=== PATIENT | female | born 1960 | race Caucasian/White ===

== ENCOUNTER 2016-08-30 09:31 | Emergency (ER) | payer MEDICAID, OTHER, SELFPAY ==
[~2016-08-30] VITALS: Ht 154.9 cm; Wt 74.8 kg
[2016-08-30] MEDS ORDERED: LEVO88TA3 PO (10:07)
--- NOTE | 2016-08-30 11:30 | REP ---
Productive cough. Comparison: None. FINDINGS: The superior mediastinal structures are midline. The cardiac silhouette is unremarkable in size, shape, and position. The diaphragmatic surfaces of the lungs are regular, and the costophrenic angles are clear. The pulmonary montemayor are clear. The imaged osseous structures are intact. IMPRESSION: There is no acute cardiopulmonary disease. Signed by Randy More DO 08/30/2016 11:36 A
[2016-08-30] MEDS ORDERED: ZITHTAB PO (11:32)
[2016-08-30 11:44] VITALS: BP 146/80
== END 2016-08-30 11:51 | disposition home or self-care (01) ==
LOC: M ED 10:37
DX: J06.9 Acute upper respiratory infection, unspecified (principal); E03.9 Hypothyroidism, unspecified; F32.9 Major depressive disorder, single episode, unspecified; E78.00 Pure hypercholesterolemia, unspecified; Z88.0 Allergy status to penicillin; F17.200 Nicotine dependence, unspecified, uncomplicated; Z79.899 Other long term (current) drug therapy

== ENCOUNTER 2016-10-03 07:42 | Emergency (ER) | payer MEDICAID, OTHER, SELFPAY ==
[~2016-10-03] VITALS: Ht 154.9 cm; Wt 68.1 kg
[~2016-10-03 07:42] MED LIST: LEVO88TA3 PO; ZITHTAB PO
[2016-10-03] MEDS ORDERED: ESCI20TA (08:01)
[2016-10-03] MEDS ORDERED: GEMF600T (08:01)
[2016-10-03] MEDS ORDERED: HYDR50TA70 (08:01)
[2016-10-03] MEDS ORDERED: BACT800T5 PO (08:52)
[2016-10-03] MEDS ORDERED: PRED20TA PO (08:52)
[2016-10-03] MEDS ORDERED: predniSONE 20 MG TAB PO ONE (09:00)
[2016-10-03] MEDS ORDERED: BACTRIM 160MG/800MG DS TAB PO ONE (09:00)
[2016-10-03 09:13] VITALS: BP 184/92
== END 2016-10-03 09:15 | disposition home or self-care (01) ==
LOC: M ED 07:42
DX: L03.221 Cellulitis of neck (principal); L29.9 Pruritus, unspecified; T78.40XA Allergy, unspecified, initial encounter; X58.XXXA Exposure to other specified factors, initial encounter; Y92.89 Other specified places as the place of occurrence of the external cause; I10 Essential (primary) hypertension; E03.9 Hypothyroidism, unspecified; F41.9 Anxiety disorder, unspecified; Z79.899 Other long term (current) drug therapy; Z88.0 Allergy status to penicillin

== ENCOUNTER 2018-07-20 16:47 | Emergency (ER) | payer OTHER ==
[~2018-07-20] VITALS: Ht 152.4 cm; Wt 65.9 kg
[~2018-07-20 16:47] MED LIST changes: +BACT800T5 PO; +ESCI20TA; +GEMF600T5; +HYDR50TA70; +PRED20TA PO
[2018-07-20 16:48] VITALS: BP 174/75
[2018-07-20] MEDS ORDERED: ATOR40TA75 (16:56)
[2018-07-20] MEDS ORDERED: LEVO100T5 (16:56)
[2018-07-20] MEDS ORDERED: ALL10TAB28 (16:56)
[2018-07-20] MEDS ORDERED: TRIA1CR80 TOP (17:29)
[2018-07-20] MEDS ORDERED: PRED20TA PO (17:29)
[2018-07-20] MEDS ORDERED: BENA25CA4 PO (17:29)
[2018-07-20] MEDS ORDERED: ELIM5CRE2 TOP (17:29)
[2018-07-20] MEDS ORDERED: predniSONE 20 MG TAB PO ONE (17:30)
[2018-07-20] MEDS ORDERED: diphenhydrAMINE 25 MG CAP PO ONE (17:30)
== END 2018-07-20 17:40 | disposition home or self-care (01) ==
LOC: M ED 16:47
DX: B86 Scabies (principal); L25.9 Unspecified contact dermatitis, unspecified cause; E78.5 Hyperlipidemia, unspecified; E03.9 Hypothyroidism, unspecified; F32.9 Major depressive disorder, single episode, unspecified; Z72.0 Tobacco use; Z79.899 Other long term (current) drug therapy; Z88.0 Allergy status to penicillin

== ENCOUNTER 2018-09-17 09:24 | Emergency (ER) | payer OTHER ==
[~2018-09-17] VITALS: Ht 152.4 cm; Wt 68.2 kg
[~2018-09-17 09:24] MED LIST changes: +ALL10TAB28; +ATOR40TA75; +BENA25CA4 PO; +ELIM5CRE2 TOP; +LEVO100T5; +TRIA1CR80 TOP
[2018-09-17] MEDS ORDERED: AZITHROMYCIN 250 MG TAB PO ONE (11:30)
[2018-09-17] MEDS ORDERED: KETOROLAC TROMETHAMINE 10 MG TAB PO ONE (11:30)
[2018-09-17] MEDS ORDERED: CYCLOBENZAPRINE 10 MG TAB PO ONE ×2 (11:30→11:45)
[2018-09-17 11:46] LABS: BASO # 0.1 10^3/uL (0.0-0.2); BASO % 0.6 % (0.0-1.0); EOS # 0.3 10^3/uL (0.0-0.50); EOS % 2.6 % (0.0-3.0); HEMATOCRIT 45.5 % (36.0-47.0); HEMOGLOBIN 15.2 g/dl (12.0-15.5); LYMPH # 3.4 10^3/uL (1.5-4.5); LYMPH % 27.6 % (24.0-44.0); MEAN CORPUSCULAR HGB CONC 33.4 g/dl (32.0-36.5); MEAN CORPUSCULAR VOLUME 89.9 fl (80.0-96.0); MONO % 7.9 % (0.0-5.0); NEUTROPHILS # 7.6 10^3/uL (1.8-7.7); NEUTROPHILS % 61.1 % (36.0-66.0); PLATELET COUNT, AUTOMATED 350 10^3/uL (150-450); RED BLOOD COUNT 5.06 10^6/uL (4.00-5.40); WHITE BLOOD COUNT 12.4 10^3/uL (4.0-10.0)
[2018-09-17 12:13] LABS: BLOOD UREA NITROGEN 19 MG/DL (7-18); CALCIUM LEVEL 9.3 MG/DL (8.8-10.2); CARBON DIOXIDE LEVEL 30 MEQ/L (21-32); CHLORIDE LEVEL 106 MEQ/L (98-107); CREATININE FOR GFR 0.76 MG/DL (0.55-1.30); GLOMERULAR FILTRATION RATE > 60.0 (>45); GLUCOSE, FASTING 84 MG/DL (70-100); POTASSIUM SERUM 4.7 MEQ/L (3.5-5.1); SODIUM LEVEL 141 MEQ/L (136-145)
[2018-09-17] MEDS ORDERED: CYCL5TAB PO (12:31)
[2018-09-17] MEDS ORDERED: ZITHTAB PO (12:31)
[2018-09-17] MEDS ORDERED: PRED20TA PO (12:31)
[2018-09-17 12:38] VITALS: BP 154/78
== END 2018-09-17 12:44 | disposition home or self-care (01) ==
LOC: M ED 09:24
DX: H66.93 Otitis media, unspecified, bilateral (principal); M62.838 Other muscle spasm; I10 Essential (primary) hypertension; E78.5 Hyperlipidemia, unspecified; E03.9 Hypothyroidism, unspecified; F33.9 Major depressive disorder, recurrent, unspecified; Z79.899 Other long term (current) drug therapy; Z79.890 Hormone replacement therapy; Z88.0 Allergy status to penicillin